=== PATIENT | male | born 1960 | race Caucasian/White ===

== ENCOUNTER → 2023-11-27 14:27 | Outpatient (REF) | payer BC, SELFPAY | LOC: RAD 14:27 | PROVIDERS: ATTENDING PHYSICIAN Family Medicine | DX: J10.1 Influenza due to other identified influenza virus with other respiratory manifestations (principal); R05.3 Chronic cough | CPT/HCPCS: 71046 ==

== ENCOUNTER → 2023-12-02 14:49 | Outpatient (REF) | payer BC, SELFPAY | LOC: HWRAD 14:49 | PROVIDERS: ATTENDING PHYSICIAN Family Medicine; FAMILY PHYSICIAN Family Medicine | DX: R04.2 Hemoptysis (principal); R79.81 Abnormal blood-gas level; J11.1 Influenza due to unidentified influenza virus with other respiratory manifestations | CPT/HCPCS: 71260; Q9967 ==

== ENCOUNTER → 2024-01-15 07:47 | Outpatient (REF) | payer BC, SELFPAY | LOC: RAD 07:47 | PROVIDERS: ATTENDING PHYSICIAN Family Medicine; FAMILY PHYSICIAN Family Medicine | DX: J18.9 Pneumonia, unspecified organism (principal) | CPT/HCPCS: 71250 ==

== ENCOUNTER 2024-06-29 18:36 | Inpatient (IN) | payer BC, SELFPAY ==
[2024-06-29] VITALS (14 sets, daily range): BP systolic 126–151; BP diastolic 71–91; BMI 37.3; BMI 36.7
[2024-06-29 15:44] LABS: Glucose - Point of Care 187 mg/dl (70-99)
--- NOTE | 2024-06-29 15:53 | ED.GENMED ---
History of Present Illness
General
Chief Complaint: Seizure
Source: patient
Exam Limitations: none
Time Seen by Provider: 06/29/24 15:41
Nursing documentation reviewed up to this point in time: agreed with
History of Present Illness
History of Present Illness:
Patient with history of seizure disorder on Keppra (1500 mg twice daily), presents to ED from work after witnessed seizure-like activity. Per paramedics, coworkers found the patient 'tightening up' and not following commands. He was laid to the
ground, where he regained consciousness and started following commands shortly afterwards. Patient was initially found in postictal state, but has continued to regain his baseline mental status. Patient denies headache. Denies blurred vision.
Denies dizziness. Denies loss of sensation or weakness. Denies tongue biting. Denies urinary or bowel incontinence. Patient states that his last episode of seizure was over 2 years ago. Patient initially was diagnosed with seizure disorder over
8 years ago. Patient is being followed by an outpatient neurologist on a regular basis. Denies recent change in medications or diet. Denies recent illness.
Review of Systems
Review of Systems
Allergies reviewed?: Yes
All Other Systems: ROS reviewed and negative except as documented in HPI and ROS
Constitutional: Reports no symptoms
EENT: Reports no symptoms
Respiratory: Reports no symptoms
Cardiac: Reports no symptoms
ABD/GI: Reports no symptoms
: Reports no symptoms; Denies incontinence
Musculoskeletal: Reports no symptoms
Skin: Reports no symptoms
Neurological: Reports no symptoms; Denies dizzy, headache, weakness or numbness
Phy Exam
Physical Exam
Physical Exam:
Physical Exam
General: no apparent distress, not acutely ill. afebrile
Head: nc/at. eomi
Neck: supple. no meningeal signs.
Heart: s1/s2 regular rate and rhythm, no murmur. equal radial pulses.
Lungs: no acute respiratory distress. clear bilaterally
Abdomen: normal bowel sounds. not tender.
Neuro: alert and oriented. no focal neurological deficits
Skin: no rash
Psychiatric: well kept. interactive and cooperative
Extremities: no edema. no calf tenderness.
Course
Orders/Labs/Results
Orders:
Orders
06/29/24 Dinner
2000 calorie (17 carb) Diabetic
At Your Request: Limited Participation
06/29/24 15:39
Electrocardiogram (*1) Urgent
Reason for Study: Vertigo / Dizzy
EKG- Treatment ONCE
06/29/24 15:57
Complete Blood Count/No Diff Urgent
Comprehensive Metabolic Panel Urgent
Keppra (Levetiracetam) [S] Urgent
Magnesium Urgent
06/29/24 16:04
Lorazepam [Ativan] 2 mg .ROUTE .STK-MED ONE
06/29/24 16:14
CT Head W/o Iv Contrast Urgent
Comment:
Reason For Exam: seizure
06/29/24 16:16
Levetiracetam Injectable [Keppra] 1,000 mg IV NOW STA
06/29/24 16:25
Lorazepam [Ativan] 0.5 mg IV NOW STA
06/29/24 16:47
Lorazepam [Ativan] 2 mg .ROUTE .STK-MED ONE
06/29/24 18:06
Lacosamide [Vimpat] 100 mg IV NOW STA
06/29/24 18:15
Admit/Transfer Patient As Directed
Co-Sign Provider:
Level of Care: Inpatient admission
Assign to:: Telemetry
Physician / Group: Gunjan
Diagnosis: Seizure
Reason for Telemetry: Arrhythmia
Date to Stop Telemetry: 07/02/24
Time to Stop Telemetry: 11:00
Reason for Hospitalization: recurrent seizure
Expected length of stay greater than two midnights?: Yes
ELOS- Estimated Length of Stay in days: 3
I certify the patient meets the requirements for IP care: Yes
06/29/24 18:16
PRN Pain Medication Management As Directed
May give lesser potent ordered pain med per pt: Yes
preference::
Protocol:: Medication orders for pain may be administered in a
manner that supports deferring to patient preference
when the pt is:
- Requesting an ordered lesser potent pain medication.
Least to most potent pain medications are defined
as: acetaminophen < NSAID < tramadol < opioids
(morphine, oxycodone, hydromorphone).
- Requesting a lesser dose of the same medication IF
ORDERED.
- Requesting a less intrusive route of administration
if both routes are prescribed by the provider (PO <
IV).
06/29/24 18:18
Code Status As Directed
Resuscitation Status: Full Code
06/29/24 20:59
Acetaminophen [Tylenol] 650 mg PO Q4HPRN PRN
Apixaban [Eliquis] 5 mg PO BID
Dextrose 50%-Water [Dextrose 50% Syringe] 12.5 grams IV [id number] PRN
Glucagon [GlucaGen] 1 mg IM PRN PRN
Lorazepam [Ativan] 1 mg IV Q4HPRN PRN
06/29/24 20:59
NEUROLOGY CONSULT Routine
Consulting Provider: Opal Del Valle
Was physician already notified: Yes
EEG Routine Routine
Reason for Exam: seizure
Activity As Directed
Activity Level: Out of Bed- Chair
Bedside Glucose Monitoring As Directed
Frequency: AC&HS
Additional Instructions:: Change to q6h if pt on TPN, tube feeding or not eating
Precautions As Directed
Type of Precautions: Seizure
Vital Signs As Directed
Frequency: Per unit guidelines
06/29/24 22:00
Gabapentin [Neurontin] 900 mg PO BID@1200,2200
Levetiracetam [Keppra] 1,500 mg PO BID
06/30/24 06:00
Glycohemoglobin (HgbA1c) IN AM
06/30/24 07:30
Insulin Aspart Corrective Low [Novolog Flexpen-Low Resistance] See Protocol SC AC
06/30/24 08:00
Allopurinol [Zyloprim] 200 mg PO DAILY
Amlodipine [Norvasc] 5 mg PO DAILY
Aspirin Low Dose EC [Aspir Low (Enteric Coated)] 81 mg PO DAILY
Gabapentin [Neurontin] 600 mg PO DAILY
Lacosamide [Vimpat] 100 mg PO BID
Metoprolol Xl [Toprol Xl] 50 mg PO DAILY
Prednisone [Deltasone] 5 mg PO DAILY
Rosuvastatin Calcium [Crestor] 40 mg PO DAILY
Valsartan [Diovan] 80 mg PO DAILY
07/02/24 11:00
DC Protocol for Telemetry ONCE
Abnormal Lab Results
06/29/24 06/29/24
15:42 15:57
WBC 4.0 L 10^3/uL
(4.8-10.8)
RBC 3.94 L 10^6/uL
(4.70-6.10)
MCV 99.0 H fL
(80.0-94.0)
MCH 33.2 H pg
(27.0-31.0)
Glucose 176 H mg/dl
(70-99)
Alkaline Phosphatase 32 L U/L
(38-126)
POC Glucose 187 H mg/dl
(70-99)
06/29/24 15:57
06/29/24 15:57
Vital Signs
Initial and Last Documented VS:
Initial Vital Signs
Temp Pulse Resp BP Pulse Ox
98.8 F 70 18 151/87 98
06/29/24 15:40 06/29/24 15:40 06/29/24 15:40 06/29/24 15:40 06/29/24 15:40
Last Documented Vital Signs
Temp Pulse Resp BP Pulse Ox
98.2 F 66 16 145/80 97
06/29/24 21:18 06/29/24 21:18 06/29/24 21:18 06/29/24 21:18 06/29/24 21:18
MDM/Problems Addressed
MDM/Problems Addressed:
Pt with another witnessed seizure episode in ED, lasting approx 5 min with spontaneous resolution. Patient given 0.5 mg of Ativan IV. Will obtain CT head at this time and load the patient with 1 g IV Keppra.
CT head: NAD.
Pt will be admitted for further evaluation and treatment.
DMV form faxed over.
*EKG
Interpreted by ED Provider?: Yes
EKG Intrepretation Date: 06/29/24
Heart Rate: 68
Rate: normal
Rhythm: sinus
Stanwood: left axis deviation
Interval: normal interval
*Critical Care Note
Total Time (30-74mins, 75-104mins- exclusive of procedures): Not Applicable
ED Attending Note
-
Portions of this chart may have been created with voice recognition software.� Occasional wrong word or��sound alike� substitutions may have occurred due to the inherent limitations of voice recognition software.
Discharge Plan
Departure
Patient Disposition: Admit
Date of Disposition: 06/29/24
Time of Disposition: 17:26
Admit to: Telemetry
Presentation/result/management discussed w/ accepting MD/DO: Hospitalist
Discharge Problem:
Seizure
Interventions
Interventions:
*Risk Screen - Suicide Last Done: 06/29/24 16:00
*General Assessment Last Done: 06/29/24 16:00
*Neglect/Abuse Screening Last Done: 06/29/24 16:00
*ED COVID-19 Vaccine History Last Done: 06/29/24 16:00
*Nursing Disposition Last Done: 06/29/24 20:59
ED- Cardiac Assessment Last Done: 06/29/24 16:02
ED- Neurological Assessment Last Done: 06/29/24 16:02
ED- Pulmonary Assessment Last Done: 06/29/24 16:02
Discharge Date and Time
Discharge Date/Time: 06/29/24 20:59
--- NOTE | 2024-06-29 16:05 | EDRN ---
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 this OIL WELL CABLE TOOL OPERATOR witnessed the pt arch his back, turn his head ot the right, and then had diffuse all over body shaking and disorganized breathing. the pts lips
became cyanotic, the pts room air oxygen saturation decreased to 85%. the pt was quickly placed on 15L NRB oxygen mask and ER Dr Dinero was brought to the pts bedside immediately.
1606- the pt was given 0.5mg Ativan IVP for seizure per ER Dr Dinero verbal order at bedside.
1608 - the pts all over body shaking has stopped, the pts breathing is regular and unlabored, the pt is returned to room air oxygen saturation - 99%
1615 - the pt is awake but is unable to answer questions or given ER staff his name
1620- the is drowsy but easily arousable. the pt is able to provide his name and age, but is unable to state his birthday
[2024-06-29] MEDS: ATIVAN 0.5 MG IV (16:06)
[2024-06-29 16:18] LABS: Hemoglobin 13.1 g/dL (13.0-18.0); Mean Corp Hgb Conc. 33.6 g/dL (33.0-37.0); Mean Corpuscular Hgb 33.2 pg (27.0-31.0); Mean Platelet Volume 10.3 fL (7.4-10.4); Platelet Count 150 10^3/uL (130-400); Red Blood Cell Count 3.94 10^6/uL (4.70-6.10); Red Cell Dist. Width 13.2 % (11.5-14.5)
[2024-06-29 16:32] LABS: ALT (SGPT) 34 U/L (0-50); AST (SGOT) 43 U/L (17-59); Albumin 4.8 g/dl (3.5-5.0); Alkaline Phosphatase 32 U/L (38-126); Blood Urea Nitrogen 18 mg/dl (9-20); Calcium 9.7 mg/dl (8.4-10.2); Carbon Dioxide 25 mmol/L (22-30); Chloride 106 mmol/L (98-107); Estimated Creatinine Clearance > 125 ml/min; Glucose 176 mg/dl (70-99); Potassium 4.1 mmol/L (3.5-5.1); Sodium 141 mmol/L (135-145); Total Bilirubin 0.9 mg/dl (0.2-1.3); Total Protein 6.9 g/dl (6.3-8.2); eGFR > 60.00
[2024-06-29] MEDS: KEPPRA 1000 MG IV (16:32)
--- NOTE | 2024-06-29 17:41 | PHANOTE ---
Med Rec Note:
Pt confused after seizure, pt's spouse not at bedside. Home med list compiled from Dr Darby, GENA and PDMP.
--- NOTE | 2024-06-29 17:50 | HPS.HSE ---
Addendum entered and electronically signed by Vonnie Lee PA-C 06/29/24 22:21:
Medical Reporting Form submitted by ED Provider
Original Note:
Family Physician
-
Family Physician: NOT KNOW UNKNOWN - PT DOES
Chief Complaint
-
Seizure
History of Present Illness
Patient is a 64 y/o male past medical history of A-Fib, Hypertension, Diabetes Mellitus and known Seizure Disorder who presents following a seizure. Patient was at work when he 'tightened up' and coworkers lowered him to the group. He was brought
to the emergency department for evaluation. While in the ED he had a seizure witnessed by staff that lasted about 5 minutes followed by post-ictal state. Upon my evaluation patient is able to answer most questions, and follow commands. He states
prior to today his last seizure was 2 years ago. He denies any changes in his medications, and denies missing any doses.
Medical History
Past Medical History
Past Medical History: Reports Other
Additional Past Medical History:
Paroxysmal Atrial Fibrillation
Essential Hypertension
Hyperlipidemia
Diabetes Mellitus, Type II
Seizure Disorder
Peripheral Polyneuropathy
Rheumatoid Arthritis
Obstructive Sleep Apnea
Gout
Past Surgical History: Reports Other
Additional Past Surgical History:
Right Total Knee Replacement
Bilateral Hand Surgery
Social History
Tobacco: Non-smoker
Alcohol: Daily (1-2 martinis per night)
Family History
Family History: Not pertinent
Allergies / Home Medications
Allergies reflects when Allergies were last updated in [facility].
Home Medications with original date entered in [facility]
Allergy/Medication List:
Allergies
Allergy/AdvReac Type Severity Reaction Status Date / Time
No Known Allergies Allergy Verified 06/29/24 15:40
Home Medications
Lactobac no.2-Bifidobac no.1-S. thermo 112.5 billion cell capsule (Visbiome) 1 cap PO DAILY 06/29/24
allopurinol 100 mg tablet 200 mg PO DAILY 06/29/24
amlodipine 5 mg tablet 5 mg PO DAILY 06/29/24
apixaban 5 mg tablet (Eliquis) 5 mg PO BID 06/29/24
aspirin 81 mg tablet,delayed release 81 mg PO DAILY 06/29/24
diazepam 5 mg tablet 5 mg PO DAILYPRN PRN anxiety 06/29/24
exenatide microspheres 2 mg/0.85 mL subcutaneous auto-injector (YaBattle) 2 mg SC WEEKLY 06/29/24
fexofenadine 180 mg tablet 180 mg PO DAILY 06/29/24
gabapentin 600 mg tablet 600 mg PO DAILY 06/29/24
gabapentin 600 mg tablet 900 mg PO BID@1200,2200 06/29/24
leflunomide 20 mg tablet 20 mg PO DAILY 06/29/24
levetiracetam 1,000 mg tablet 1,500 mg PO BID 06/29/24
metformin 500 mg tablet,extended release 24 hr 1,000 mg PO DAILY 06/29/24
metoprolol succinate 50 mg tablet,extended release 24 hr 50 mg PO DAILY 06/29/24
nitroglycerin 0.4 mg sublingual tablet (Nitrostat) 0.4 mg sublingual [id number] PRN chest pain 06/29/24
prednisone 5 mg tablet 5 mg PO DAILY 06/29/24
rosuvastatin 40 mg tablet 40 mg PO DAILY 06/29/24
therapeutic multivitamin 1 tab PO DAILY 06/29/24
upadacitinib 15 mg tablet,extended release 24 hr (Rinvoq) 15 mg PO DAILY 06/29/24
valsartan 80 mg tablet 80 mg PO DAILY 06/29/24
Review of Systems
-
A 12 point ROS was completed and negative except as noted: Yes
Constitutional: Denies Fever or Chills
Respiratory: Denies Cough or Trouble Breathing
Cardiac: Denies Chest Pain or Palpitations
Abdomen/GI: Denies Abdominal Pain, Nausea, Vomiting or Diarrhea
Physical Exam
Vital Signs
Vital Signs
Temp Pulse Resp BP Pulse Ox
98.8 F 68 16 131/74 95
06/29/24 15:40 06/29/24 17:30 06/29/24 16:15 06/29/24 17:30 06/29/24 17:30
Physical Exam
General: Comfortable and Conversant
HEENT: Moist mucous membranes and Atraumatic
Respiratory: Clear and Non Labored Respirations
Cardiac: S1/S2 and Regular Rhythm
GI: Soft and Non Tender
Rectal: Deferred by Provider
Musculoskeletal: No Clubbing, No Cyanosis and No Edema
Skin: Warm and Dry
Neuro: Awake, Alert, Oriented and Nonfocal/grossly intact
Psych: Calm
Laboratory Results
-
06/29/24 15:57
06/29/24 15:57
Laboratory Results
Total Bilirubin 0.9 mg/dl (0.2-1.3) 06/29/24 15:57
AST 43 U/L (17-59) 06/29/24 15:57
ALT 34 U/L (0-50) 06/29/24 15:57
Alkaline Phosphatase 32 U/L (38-126) L 06/29/24 15:57
Data Reviewed
-
CT Scan: Report Reviewed by me
Lab Data: Labs Reviewed by me
Impression/Plan
-
Recurrent Seizure
-Consult Neurology
-Add Vimpat 100mg BID
-Continue Keppra 1500mg BID
-Seizure Precautions
-EEG in AM
Paroxysmal Atrial Fibrillation
-Continue Eliquis
-Continue metoprolol
Essential Hypertension
-Continue amlodipine, metoprolol and valsartan
Hyperlipidemia
-Continue Crestor
Diabetes Mellitus, Type II
-Hold metformin
-Monitor sugars and continue coverage insulin
Peripheral Polyneuropathy
-Continue gabapentin
Rheumatoid Arthritis
-Continue prednisone
-Patient maintained on leflunomide and Rinvoq as outpatient
DVT proph: Stevenis
Code Status: Full Code
--- NOTE | 2024-06-29 18:14 | W.PN.UPDATE ---
Update Note
Progress Note Update
This is an addendum to the H&P written by Vonnie Houser on 06/29/2024. Patient seen and examined independently with PA.
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
He had another seizure in the emergency room and was given Ativan and was postictal afterwards with confusion however significant improvement currently.
Last seizure 2 years ago. He has been compliant with antiseizure medication.
No neurological deficits on examination. CT head shows no acute abnormality. Check Keppra level. Check EEG. Neurology recommends adding Vimpat to Keppra.
[2024-06-29] MEDS: VIMPAT 100 MG IV (19:08)
--- NOTE | 2024-06-29 21:30 | PTCARENOTE ---
Pt arrived to room 415-02. Pt ambulated from stretcher to bed. Pt AAOx3, VSS. Pt with padded side rails and bed alarm. Pt oriented to room call gaytan placed within reach.
[2024-06-29 21:39] LABS: Glucose - Point of Care 202 mg/dl (70-99)
[2024-06-29] MEDS: ELIQUIS 5 MG PO (23:24)
[2024-06-29] MEDS: KEPPRA 1500 MG PO (23:24)
[2024-06-29] MEDS: NEURONTIN 900 MG PO (23:24)
[2024-06-30 04:12] VITALS: BP 135/77
[2024-06-30 07:18] LABS: Glucose - Point of Care 116 mg/dl (70-99)
[2024-06-30 07:20] VITALS: BP 123/78
[2024-06-30] MEDS: NOVOLOG FLEXPEN-LOW RESISTANCE SC (07:21)
[2024-06-30] MEDS: DELTASONE 5 MG PO (09:05)
[2024-06-30] MEDS: VIMPAT 100 MG PO (09:05)
[2024-06-30] MEDS: NEURONTIN 600 MG PO (09:05)
[2024-06-30] MEDS: ZYLOPRIM 200 MG PO (09:05)
[2024-06-30] MEDS: CRESTOR 40 MG PO (09:05)
[2024-06-30] MEDS: DIOVAN 80 MG PO (09:06)
[2024-06-30] MEDS: NORVASC 5 MG PO (09:06)
[2024-06-30] MEDS: ELIQUIS 5 MG PO (09:06)
[2024-06-30] MEDS: ASPIR LOW (ENTERIC COATED) 81 MG PO (09:06)
[2024-06-30] MEDS: TYLENOL 650 MG PO (09:12)
[2024-06-30] MEDS: KEPPRA 1500 MG PO (09:19)
[2024-06-30 10:24] LABS: Glycohemoglobin (HgbA1c) 6.3 % (4.0-5.6)
[2024-06-30 11:44] LABS: Glucose - Point of Care 213 mg/dl (70-99)
[2024-06-30 11:59] VITALS: BP 143/82
[2024-06-30 12:27] VITALS: BP 137/80; PULSE 63
--- NOTE | 2024-06-30 12:31 | PTOTSP ---
pt currently demonstrates ability to complete simple ADLs, functional transfers, ambulation with no assistance. pt demonstrates no overt deficits from seizure. no acute OT needs identified at this time, will sign off.
[2024-06-30] MEDS: NOVOLOG FLEXPEN-LOW RESISTANCE 2 UNITS SC (12:39)
[2024-06-30] MEDS: NEURONTIN 900 MG PO (12:39)
--- NOTE | 2024-06-30 12:49 | EEG.RPT ---
Electroencephalogram Report
Recording
Date of EE06/30/24
Type of EEG: Routine
Length of EEG recordin mins
Done with Video Recording: Yes
Patient Status: Inpatient
Recording Conditions: Awake
Report
METHODS
A 21 channel digitized electroencephalogram was performed at [facility]. The 10/20 international system of electrode placement was used. In addition to EEG, the patient was monitored for EKG. The duration of the recording was 31 minutes.
BACKGROUND
During the awake state, with the eyes closed, the background was very mildly diffusely slow to an average of 7-8Hz.
HYPERVENTILATION
Hyperventilation resulted in no change in the background.
PHOTIC STIMULATION
Photic stimulation using a step-castellon increase in photic frequency varying from 1-31 Hertz resulted in no driving responses but no appearance of abnormal activity.
CLINICAL EVENTS
None
INTERPRETATION AND CLINICAL CORRELATION
This EEG is abnormal due to the presence of very mild diffuse slowing to an average of 7-8Hz consistent with mild diffuse cerebral dysfunction, nonspecific in etiology. This can be seen postictally. No seizures were noted.
--- NOTE | 2024-06-30 12:55 | CM ---
Pt seen at bedside w/ spouse.
Pt lives w/ spouse in a 2STH with 1 step to enter
Prev. independent. Denies any DME for ambulation or daily functioning
Denies SNF hx. Did receive OP rehab in the past
Denies VN/PT hx
Denies financial insecurities
Address, point of contact and insurance verified
PCP: Dr. Sujey Montanez
Pharmacy: [facility] [place]
Neuro pending, PT/OT pending
Plan: Will be determined following hospital course
CM will cont. to follow for d/c needs
--- NOTE | 2024-06-30 13:25 | W.PN.HOSP.TC ---
Today's Communication/Plan
-
dc to home today
Assessment / Plan
Assessment / Plan
Assessment:
Recurrent Seizure
- continue Keppra
- continue Vimpat per Neurology
- EEG: nonspecific
- [employer] forms submitted, patient aware cannot drive for 6 months.
- OP Neuro f/u
Paroxysmal Atrial Fibrillation
- continue Eliquis
- continue metoprolol
Essential Hypertension
- continue amlodipine, metoprolol and valsartan
Hyperlipidemia
- continue Crestor
Diabetes Mellitus, Type II
- continue metformin
- monitor sugars and continue coverage insulin
Peripheral Polyneuropathy
- continue gabapentin
Rheumatoid Arthritis
- continue prednisone
- patient maintained on leflunomide and Rinvoq as outpatient
DVT ppx: Eliquis
Code Status: Full Code
More than 30 minutes spent in discharge including
Final examination of the patient
Summarizing hospital stay
Instructions for continuing care to all relevant caregivers
Preparation of discharge records, prescriptions, and referral forms
Total time spent (in minutes): 41
Anticipated Discharge: Today
Subjective/Interval History
-
Date of Service: June 30, 2024
feels well no complaints
Objective Data
-
Vital Signs:
Vital Signs
Temp Pulse Resp BP Pulse Ox
98.2 F 59 18 143/82 98
06/30/24 11:59 06/30/24 11:59 06/30/24 11:59 06/30/24 11:59 06/30/24 11:59
I&O
06/29/24 06/30/24 07/01/24
06:59 06:59 06:59
Intake Total 960 / 960
Balance 960 / 960
Physical Exam
-
General: No Apparent Distress
HEENT: Normocephalic and Atraumatic
Respiratory: Negative Wheezes
Cardiac: Regular Rhythm and S1/S2
GI: Soft and Nontender
Genito-urinary: No Costovertebral Tender
Musculoskeletal: No Edema
Neuro: AO x 3
Hematologic / Lymphatic: No Lymphadenopathy
Psych: Calm
Data Reviewed
-
Total Time Spent with Patient (in minutes): 42
Labs: Labs Reviewed by me
--- NOTE | 2024-06-30 13:43 | CON.NEURO4 ---
Consultation - Neurology 4
-
CONSULTING PHYSICIAN: Eligio
REFERRING PHYSICIAN: ER
DICTATED BY: Eligio
DATE/TIME OF REQUEST: 06/29/24 in the evening
DATE/TIME OF CONSULTATION: 06/30/24 at 1230
Reason for Consultation: breakthrough seizure
History of Present Illness:
64-year-old male with a history of epilepsy diagnosed about 8 years ago who follows with [facility] in [place], Dr. Parker, brought in from work after abrupt onset of 'tightening up all over' and not following commands. They were able to sit him
up in a chair. He lost consciousness for some time, then regained consciousness and followed commands shortly thereafter. He remembers waking up from the event. No associated fall or head trauma. No tongue bite or bowel or bladder incontinence.
Denies any postictal muscle pain or headache. Documented as alert and oriented in ED note. Then he had another witnessed seizure episode in ED; lasted approx 5 min and resolved on its own. Patient given 0.5 mg of Ativan IV. Later 2 more mg
given. Loaded with additional Keppra 1g IV and Vimpat 100mg IV added. No further events.
He feels that he is returned to his baseline now. His last seizure was in October 2021 and he has been taking Keppra 1500 mg twice daily religiously for years. He is only ever taken Keppra. He does drink alcohol and his last drink was yesterday.
He says that he is 'felt very tired and has been working very hard.' No new medications. He may have been somewhat sleep deprived. No other clear provoking factors.
Seizure risk factors: Born full-term. 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 No complications. No [employer] infection, history of stroke, history of head trauma. No clear history of
developmental delay. No family history of epilepsy.
Allergies
No Known Allergies Allergy (Verified 06/29/24 15:40)
Home Medications
�Medication �Instructions �Recorded
Lactobac no.2-Bifidobac no.1-S. 1 cap PO DAILY Supplement 06/29/24
thermo 112.5 billion cell capsule
(Visbiome)
allopurinol 100 mg tablet 200 mg PO DAILY Gout 06/29/24
amlodipine 5 mg tablet 5 mg PO DAILY Blood Clot 06/29/24
Prevention/Tx
apixaban 5 mg tablet (Eliquis) 5 mg PO BID Blood Clot 06/29/24
Prevention/Tx
aspirin 81 mg tablet,delayed 81 mg PO DAILY Blood Clot 06/29/24
release Prevention/Tx
diazepam 5 mg tablet 5 mg PO DAILYPRN PRN anxiety 06/29/24
exenatide microspheres 2 mg/0.85 2 mg SC WEEKLY Diabetes 06/29/24
mL subcutaneous auto-injector
(Bymayelin BCise)
fexofenadine 180 mg tablet 180 mg PO DAILY Allergies 06/29/24
gabapentin 600 mg tablet 600 mg PO DAILY Neurological 06/29/24
Condition
gabapentin 600 mg tablet 900 mg PO BID@1200,2200 06/29/24
Neurological Condition
leflunomide 20 mg tablet 20 mg PO DAILY Autoimmune Disorder 06/29/24
metformin 500 mg tablet,extended 1,000 mg PO DAILY Diabetes 06/29/24
release 24 hr
metoprolol succinate 50 mg 50 mg PO DAILY Blood Pressure 06/29/24
tablet,extended release 24 hr
nitroglycerin 0.4 mg sublingual 0.4 mg sublingual [id number] PRN 06/29/24
tablet (Nitrostat) chest pain
prednisone 5 mg tablet 5 mg PO DAILY Autoimmune Disorder 06/29/24
rosuvastatin 40 mg tablet 40 mg PO DAILY High Cholesterol 06/29/24
therapeutic multivitamin 1 tab PO DAILY Supplement 06/29/24
upadacitinib 15 mg tablet,extended 15 mg PO DAILY Autoimmune Disorder 06/29/24
release 24 hr (Rinvoq)
valsartan 80 mg tablet 80 mg PO DAILY Blood Pressure 06/29/24
lacosamide 100 mg tablet 100 mg PO BID #60 tabs 06/30/24
levetiracetam 1,000 mg tablet 1,500 mg (1.5 x 1,000 mg) PO BID 06/30/24
Neurological Condition 30 days #90
tabs
Review of Symptoms:
Patient denies any fever, headache, chest pain, shortness of breath, GI or symptoms.
�Per the HPI.�All systems are reviewed negative except above.
Vital Signs
Temp Pulse Resp BP Pulse Ox
98.2 F 59 18 143/82 98
06/30/24 11:59 06/30/24 11:59 06/30/24 11:59 06/30/24 11:59 06/30/24 11:59
Lab Results
06/29/24 15:57
06/29/24 15:57
Sodium 141 mmol/L (135-145) 06/29/24 15:57
Potassium 4.1 mmol/L (3.5-5.1) 06/29/24 15:57
BUN 18 mg/dl (9-20) 06/29/24 15:57
Glucose 176 mg/dl (70-99) H 06/29/24 15:57
Calcium 9.7 mg/dl (8.4-10.2) 06/29/24 15:57
Physical Exam:
The patient is afebrile, heart sounds S1 and S2 are regular , and chest is clear to auscultation bilaterally.
Neurologic Examination:
The patient is awake, alert and oriented x 3. He was unable to state the name of the president but otherwise was a good historian. He is able to follow commands and answer other questions appropriately. There is no aphasia or dysarthria. On cranial
nerve assessment, pupils are 3 mm bilateral, round and reactive to light and accommodation. Visual beltran are full. Extraocular movements are intact. Facial sensations are intact and bilaterally symmetrical, there is no facial asymmetry. Hearing is
intact bilaterally to normal conversation volume. Tongue palate and uvula are midline. Sternocleidomastoid strengths are full bilaterally. Motor strengths are 5/5 bilateral upper and lower extremities on medical research Lena scale. There is no
drift or involuntary movement noted. Deep tendon reflexes are 2+ bilateral upper and lower extremities and Babinski is absent bilaterally. Sensations of pain, touch, temperature and vibration are intact and bilaterally symmetrical. There was no
extinction noted on double simultaneous stimulation. Coordination is intact by finger to nose bilaterally.
Neuro Imaging:
HCT: 06/29:
No acute intracranial abnormality noted.
Impression:
JEROD MEREDITH is a 64 year old M with a history of epilepsy with two breakthrough seizures yesterday without clear provoking factors. He returned to his cognitive baseline between the events. He is on the max dose of Keppra as an outpatient so
Vimpat has been added.
Recommendations:
-continue Vimpat 100mg BID, SW confirmed that this is affordable as a generic, continue Keppra 1500mg BID
-reported to [facility] by the ED, knows he should not drive
-seizure precautions, neurochecks
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
-should f/u as an OP with Dr. Parker, his neurologist at [facility].
Ok for d/c
Discussed patient care with: patient and his , Dr. Underwood, ED
--- NOTE | 2024-06-30 13:44 | W.DS.TRANS ---
DC Summary - [employer]
-
Discharge Instructions:
Discharge Diagnosis/Procedures recurrent seizures
Diet Diabetic, Carb Controlled
Activity As tolerated
Bathing Restrictions None
Instructions:
Stand-Alone Forms:
Changes to Home Medications: No
Discharge Medications:
DC Medications w/original date entered in [id number]
Lactobac no.2-Bifidobac no.1-S. thermo 112.5 billion cell capsule (Visbiome) 1 cap PO DAILY Supplement 06/29/24
allopurinol 100 mg tablet 200 mg PO DAILY Gout 06/29/24
amlodipine 5 mg tablet 5 mg PO DAILY Blood Clot Prevention/Tx 06/29/24
apixaban 5 mg tablet (Eliquis) 5 mg PO BID Blood Clot Prevention/Tx 06/29/24
aspirin 81 mg tablet,delayed release 81 mg PO DAILY Blood Clot Prevention/Tx 06/29/24
diazepam 5 mg tablet 5 mg PO DAILYPRN PRN anxiety 06/29/24
exenatide microspheres 2 mg/0.85 mL subcutaneous auto-injector (ByMatthew Kenney Cuisine BCise) 2 mg SC WEEKLY Diabetes 06/29/24
fexofenadine 180 mg tablet 180 mg PO DAILY Allergies 06/29/24
gabapentin 600 mg tablet 600 mg PO DAILY Neurological Condition 06/29/24
gabapentin 600 mg tablet 900 mg PO BID@1200,2200 Neurological Condition 06/29/24
leflunomide 20 mg tablet 20 mg PO DAILY Autoimmune Disorder 06/29/24
metformin 500 mg tablet,extended release 24 hr 1,000 mg PO DAILY Diabetes 06/29/24
metoprolol succinate 50 mg tablet,extended release 24 hr 50 mg PO DAILY Blood Pressure 06/29/24
nitroglycerin 0.4 mg sublingual tablet (Nitrostat) 0.4 mg sublingual [id number] PRN chest pain 06/29/24
prednisone 5 mg tablet 5 mg PO DAILY Autoimmune Disorder 06/29/24
rosuvastatin 40 mg tablet 40 mg PO DAILY High Cholesterol 06/29/24
therapeutic multivitamin 1 tab PO DAILY Supplement 06/29/24
upadacitinib 15 mg tablet,extended release 24 hr (Rinvoq) 15 mg PO DAILY Autoimmune Disorder 06/29/24
valsartan 80 mg tablet 80 mg PO DAILY Blood Pressure 06/29/24
lacosamide 100 mg tablet 100 mg PO BID #60 tabs 06/30/24
levetiracetam 1,000 mg tablet 1,500 mg (1.5 x 1,000 mg) PO BID Neurological Condition 30 days #90 tabs 06/30/24
Home Medication Changes
Pending Results: No
Total time spent discharging patient (in min): 41
--- NOTE | 2024-06-30 13:45 | CM ---
Request for medication costs for Vimpat 100 mg BID, 60 tabs.
Per [facility] pharmacy/[place]- name brand not covered, generic $15 for 60 tabs.
MD updated.
[2024-07-01 22:23] LABS: Keppra (Levetiracetam) 27 ug/mL (10-40)
== END 2024-06-30 14:39 | disposition home or self-care (01) | DRG 101 ==
LOC: 4 WEST ACU 18:36
PROVIDERS: Physician Assistant Medical; ADMITTING PHYSICIAN Hospitalist; ATTENDING PHYSICIAN Internal Medicine; CONSULT PHYSICIAN Psychiatry & Neurology Neurology; EMERGENCY PHYSICIAN Emergency Medicine; FAMILY PHYSICIAN Family Medicine
DX: G40.909 Epilepsy, unspecified, not intractable, without status epilepticus (principal); E11.42 Type 2 diabetes mellitus with diabetic polyneuropathy; I10 Essential (primary) hypertension; M06.9 Rheumatoid arthritis, unspecified; E78.00 Pure hypercholesterolemia, unspecified; G47.33 Obstructive sleep apnea (adult) (pediatric); I48.0 Paroxysmal atrial fibrillation; M10.9 Gout, unspecified; Z79.01 Long term (current) use of anticoagulants; Z79.84 Long term (current) use of oral hypoglycemic drugs; Z79.52 Long term (current) use of systemic steroids; Z79.899 Other long term (current) drug therapy; Z92.3 Personal history of irradiation; Z96.651 Presence of right artificial knee joint
CPT/HCPCS: 70450; 80053; 80177; 82962; 83036; 83735; 85027; 93005; 95816; 96374; 96375; 97166; 99285; C9254

== ENCOUNTER → 2024-07-26 13:33 | Outpatient (REF) | payer BC, SELFPAY | LOC: RAD 13:33 | PROVIDERS: ATTENDING PHYSICIAN Family Medicine; FAMILY PHYSICIAN Family Medicine | DX: R06.02 Shortness of breath (principal) | CPT/HCPCS: 71046 ==

== ENCOUNTER 2024-11-14 06:22 | Day surgery (SDC) | payer BC, SELFPAY ==
[2024-11-14 09:09] LABS: Glucose - Point of Care 123 mg/dl (70-99)
== END 2024-11-14 11:53 | disposition home or self-care (01) ==
LOC: GI 06:22
PROVIDERS: ATTENDING PHYSICIAN Student in an Organized Health Care Education/Training Program
DX: Z12.11 Encounter for screening for malignant neoplasm of colon (principal); K64.8 Other hemorrhoids; D12.3 Benign neoplasm of transverse colon; D12.5 Benign neoplasm of sigmoid colon; D12.8 Benign neoplasm of rectum; K63.5 Polyp of colon; K62.1 Rectal polyp; Z86.0101 Personal history of adenomatous and serrated colon polyps
CPT/HCPCS: 45385; 45380; 88305; 82962

== ENCOUNTER → 2025-01-17 11:19 | Outpatient (REF) | payer BC, SELFPAY | LOC: RAD 11:19 | PROVIDERS: ATTENDING PHYSICIAN Family Medicine; FAMILY PHYSICIAN Family Medicine | DX: M54.17 Radiculopathy, lumbosacral region (principal) | CPT/HCPCS: 72110 ==